=== PATIENT | male | born 1965 | race Caucasian/White ===

== ENCOUNTER 2024-11-14 05:33 | Day surgery (SDC) | payer OTHER ==
[2024-11-10 10:55] VITALS: BMI 31.3
[2024-11-14] MEDS ORDERED: NITROGLYCERIN SL TABS 0.4 MG TAB SUBLINGUAL PRN (05:56)
[2024-11-14] MEDS ORDERED: ALPRAZolam 0.25 MG TAB PO PRN (05:56)
[2024-11-14] MEDS ORDERED: ALPRAZolam 0.5 MG TAB PO PRN (05:56)
[2024-11-14] MEDS: IV FLUID CONTINUATION 1,000 ML IV ONE (06:10)
[2024-11-14 06:21] VITALS: RESP 16; TEMP 97
[2024-11-14] MEDS: SODIUM CHLORIDE 0.9% 1,000 ML in EMPTY BAG 1 BAG IV SCH (06:21)
[2024-11-14] MEDS: ASPIRIN 325 MG TAB PO STA (06:23)
[2024-11-14 06:32] LABS: Basophils # (A) 0.04 10*3/uL (0.00-0.10); Basophils % (A) 0.5 %; Eosinophils % (A) 3.5 %; HCT 44.8 % (39.6-50.0); HGB 15.5 g/dL (13.0-17.0); Lymphocytes # (A) 2.76 10*3/uL (0.90-5.00); Lymphocytes % (A) 31.9 %; MCH 31.4 pg (27.0-32.0); MCHC 34.6 g/dL (32.0-37.0); MCV 90.7 fL (80.0-97.0); Mean Platelet Volume 12.1 fL (9.5-12.2); Monocytes % (A) 9.2 %; Neutrophils # (A) 4.74 10*3/uL (1.80-7.70); Neutrophils % (A) 54.8 %; Platelet Count 142 10*3/uL (140-440); RBC 4.94 10*6/uL (4.40-5.60); RDW 13.2 % (11.5-14.5); WBC 8.65 10*3/uL (4.50-10.00)
[2024-11-14 06:44] LABS: Potassium 4.4 mmol/L (3.5-5.1)
[2024-11-14 06:45] LABS: African American GFR (CKD) >90 (>60 ml/min/1.73 sqM); Anion Gap 8 mmol/L; Blood Urea Nitrogen 13 mg/dL (9-20); Calcium 9.3 mg/dL (8.4-10.2); Carbon Dioxide 24 mmol/L (22-30); Chloride 105 mmol/L (98-107); Glucose 123 mg/dL (74-99); Non-African American GFR(CKD) >90 (>60 ml/min/1.73 sqM); Sodium 137 mmol/L (137-145)
[2024-11-14] MEDS: LIDOCAINE 1% INJ 10MG/ML (20 ML MDV) SQ ONE (07:41)
[2024-11-14] MEDS: VERAPAMIL SYRINGE (5 MG/10 ML) INTRAARTER ONE (07:41)
[2024-11-14] MEDS: fentaNYL (PF) 50 MCG/1 ML VIAL IVP ONE (07:41)
[2024-11-14] MEDS: HEPARIN SODIUM 1,000 UN/ML (10ML VL) IVP ONE (07:46)
[2024-11-14] MEDS: HEPARIN SODIUM,PORCINE 10,000 UNIT in SODIUM CHLORIDE 0.9% 1,000 ML IRRIGATION PRN (07:47)
[2024-11-14] MEDS: HEPARIN SODIUM,PORCINE (1 ML) 2,500 UNIT in SODIUM CHLORIDE 0.9% 250 ML IRRIGATION PRN (07:47)
[2024-11-14] MEDS: IOPAMIDOL-370 100ML BTL INJ ONE (07:52)
[2024-11-14] MEDS ORDERED: RX INFO: IV CONTRAST WAS GIVEN 1 EACH MISC MISCELLANE PRN (08:05)
--- NOTE | 2024-11-14 08:10 | P.CARDCATH ---
Date of Procedure: 11/14/24 Description of Procedure: Cardiac Catheterization: The patient is a 59-year-old male with known history of CAD status post stenting of the proximal codominant left circumflex in 2015, history of hypertension, and hyperlipidemia who has been complaining of progressive fatigue and had an abnormal MPI with inferolateral ischemia. Recommendations were made regarding cardiac catheterization, the risks and the complications were discussed with the patient who is in full understanding and agreement. Procedure Description: Patient was brought to [facility] in fasting semi-sedated state after receiving Fentanyl and Benadryl achieiving moderate conscious sedated state. Using Xylocaine Anesthesia and modified Seldinger technique, a 6-Chinese sheath was introduced in the right radial artery . Subsequently, selective coronary angiography was performed using a 5-Chinese 3.5 bend Selwyn catheter. Multiple views of the coronary artery including hemiaxial views were obtained. The right Selwyn catheter was used to cross the aortic valve and LVEDP was calculated. Following that, catheter and sheath were al ghanshyam. Hemostasis was obtained with deployment of vascular band . There was no immediate complication. Patient was returned to room in stable condition. Of note, the patient received a total of 5000 units of intravenous heparin as well as intra-arterial verapamil. Findings: Left main: This is a large size vessel, bifurcating into LAD and left circumflex, left main has 10 to 20% plaque distally. LAD: This is a large size vessel, reaching to the apex with a wraparound apex segment giving rise to a large diagonal branch in the midsegment. The ostium of the LAD has 10 to 20% plaque, the rest of the vessel has no high-grade stenosis Left circumflex: This is a large codominant vessel giving rise to 2 obtuse marginal branch, the proximal stented segment of the left circumflex is patent with no significant in-stent restenosis. There is mild plaque at the ostium of the second obtuse marginal branch of 20%, the rest of the vessel has no high- grade stenosis. RCA: This is a moderately sized codominant vessel, tortuous giving rise to right PDA. The RCA has no obstructive disease Left Ventriculogram: Not performed Hemodynamics: There was no gradient across the aortic valve, LVEDP was 12-14 mmHg Conclusion: 1. Patent stent in the proximal left circumflex 2. Mild disease in the distal left main and ostial LAD 3. Codominant system 4. Normal LVEDP Recommendations: I have recommended to continue medical therapy with the aggressive coronary risks modification that has been initiated. The findings and the recommendations were discussed with the patient and the family and they were in full understanding and agreement. Duration of sedation is 10 minutes.
[2024-11-14] MEDS: SODIUM CHLORIDE 0.9% 1,000 ML IV SCH (08:15)
[2024-11-14] MEDS ORDERED: ATORVASTATIN 80 MG TAB PO SCH (09:00)
[2024-11-14] MEDS ORDERED: METOPROLOL TARTRATE 25 MG TAB PO SCH (09:00)
[2024-11-14 11:56] VITALS: BP 120/58; PULSE 70
[2024-11-14] MEDS ORDERED: TAMSULOSIN 0.4 MG CAP.ER.24H PO SCH (21:00)
[2024-11-14] MEDS ORDERED: ASPIRIN 81 MG PO SCH (21:00)
== END 2024-11-14 11:32 | disposition home or self-care (01) ==
LOC: CATHCVL 05:33
PROVIDERS: ATTEND Internal Medicine Interventional Cardiology
DX: I25.10 Atherosclerotic heart disease of native coronary artery without angina pectoris (principal); Z95.5 Presence of coronary angioplasty implant and graft; I10 Essential (primary) hypertension; E78.2 Mixed hyperlipidemia; I08.1 Rheumatic disorders of both mitral and tricuspid valves; F17.210 Nicotine dependence, cigarettes, uncomplicated; Z79.82 Long term (current) use of aspirin; Z79.620 Long term (current) use of immunosuppressive biologic; Z79.69 Long term (current) use of other immunomodulators and immunosuppressants; Z79.899 Other long term (current) drug therapy
CPT/HCPCS: 93458; 80048; 85025; C1894; C1769; J1644 ×3; J2003; Q9967; J3010